=== PATIENT | female | born 1980 | race Caucasian/White ===

== ENCOUNTER 2022-06-30 13:25 | Outpatient (CLI) | payer OTHER ==
[2022-06-30 14:59] LABS: #Basophils 0.1 10x3/uL (0.0-0.2); #Eosinphils 0.2 10x3/uL (0.0-0.5); #Monocytes 0.7 10x3/uL (0.0-1.1); #Neutrophils 4.9 10x3/uL (1.5-8.4); %Basophils 0.8 % (0.0-2.0); %Eosinophils 2.5 % (0.0-6.0); %Lymphocytes 33.9 % (18.0-47.0); %Monocytes 7.8 % (0.0-10.0); %Neutrophils 54.7 % (40.0-75.0); Hemoglobin 14.4 g/dL (12.0-15.5); Mean Corpuscular HGB CONC 32.8 g/dL (32.0-36.0); Mean Corpuscular Hemoglobin 31.2 pg (27.0-33.0); Mean Platelet Volume 10.9 fl (7.4-10.4); Platelet Count 339 10x3/uL (150-450); RBC Distribution Width 11.9 % (11.5-14.5); Red Blood Cell (RBC) Count 4.62 10x6/uL (3.90-5.03); White Blood Cell (WBC) Count 9.1 10x3/uL (3.5-10.5)
[2022-06-30 15:14] LABS: ALT (SGPT) 101 U/L (8-55); AST (SGOT) 41 U/L (5-34); Albumin 4.6 g/dL (3.5-5.0); Alkaline Phosphatase 82 U/L (40-110); Anion Gap 14 mmol/L (10-20); BUN (Urea Nitrogen) 13 mg/dL (7.0-18.7); Bilirubin, Direct 0.2 mg/dL (0.1-0.3); Bilirubin, Total 0.4 mg/dL (0.2-1.2); Calc. Creatinine Clearance 0 mL/min (70-130); Calcium 10.2 mg/dL (7.8-10.44); Carbon Dioxide 24 mmol/L (22-29); Chloride 106 mmol/L (98-107); Estimated GFR 101; Globulin 2.9 g/dL (2.4-3.5); Glucose 81 mg/dL (70-105); Potassium 4.4 mmol/L (3.5-5.1); Protein, Total 7.5 g/dL (6.0-8.3); Sodium 140 mmol/L (136-145)
== END 2022-06-30 13:26 | disposition home or self-care (01) ==
LOC: LABBT 13:25
PROVIDERS: ATTEND Surgery
DX: Z01.812 Encounter for preprocedural laboratory examination (principal); K80.20 Calculus of gallbladder without cholecystitis without obstruction
CPT/HCPCS: 80053; 80076; 85025

== ENCOUNTER 2022-07-07 06:03 | Day surgery (SDC) | payer OTHER ==
[2022-07-04 11:26] VITALS: BMI 38.6
[2022-07-07] MEDS ORDERED: Bupivacaine/Epinephrine 0.25% 30 ML VIAL ONE (06:51)
[2022-07-07] MEDS ORDERED: Scopolamine 1.5 mg/72 hour Patch ONE (07:24)
[2022-07-07] MEDS ORDERED: Midazolam HCl 2 mg/2 ml Vial ONE (07:24)
[2022-07-07] MEDS ORDERED: SUGAMMADEX SODIUM 200 MG/2 ML VIAL ONE (07:29)
[2022-07-07] MEDS ORDERED: Famotidine/PF 20 mg/2ml Vial ONE (07:29)
[2022-07-07] MEDS ORDERED: Fentanyl 250 MCG/5 ML VIAL ONE (07:29)
[2022-07-07] MEDS ORDERED: Sodium Chloride 0.9% 100 ML ONE (07:31)
[2022-07-07] MEDS ORDERED: cefOXitin 2 GM VIAL ONE (07:31)
[2022-07-07] MEDS ORDERED: Dexamethasone 20 MG/5 ML VIAL ONE (07:44)
[2022-07-07] MEDS ORDERED: PROPOFOL 200 MG/20 ML VIAL ONE (07:44)
[2022-07-07] MEDS ORDERED: Ondansetron PF 4 MG/2 ML Vial ONE (07:44)
[2022-07-07] MEDS ORDERED: Ketorolac Tromethamine 30 MG/ML VIAL ONE (07:44)
[2022-07-07] MEDS ORDERED: Rocuronium Bromide 10 MG/ML (10ML VIAL) ONE (07:44)
[2022-07-07] MEDS ORDERED: Lidocaine 1% PF 5 ML VIAL ONE (07:44)
[2022-07-07] MEDS ORDERED: fentaNYL 50 mcg/mL 1 mL Vial ONE (09:12)
[2022-07-07] MEDS ORDERED: HYDROcodone/Acetaminophen 5/325 mg Tablet ONE (09:53)
[2022-07-07] MEDS ORDERED: Promethazine HCl 25 MG/ML VIAL ONE (10:08)
== END 2022-07-07 10:55 | disposition home or self-care (01) ==
LOC: SDC 06:03
PROVIDERS: ATTEND Surgery
PROC: 0FT44ZZ Resection of Gallbladder, Percutaneous Endoscopic Approach (ICD-10-PCS; principal; 2022-07-07)
DX: K80.10 Calculus of gallbladder with chronic cholecystitis without obstruction (principal); G89.29 Other chronic pain; Z79.899 Other long term (current) drug therapy
CPT/HCPCS: 88304; C1889; J0694; J1100; J1885; J2250; J2405; J2550; J2704; J3010; J3490; S0028